=== PATIENT | female | born 1975 | race African-American/Black ===

== ENCOUNTER 2019-03-24 08:17 | Emergency (ER) | payer BC, OTHER ==
[2019-03-24 08:30] VITALS: BP 140/88; PULSE 89; TEMP 98.2; BMI 30.9
[2019-03-24] MEDS ORDERED: METHOCARBAMOL 750 MG TABLET PO ONE (09:11)
[2019-03-24] MEDS ORDERED: KETOROLAC TROMETHAMINE 60 MG/2 ML VIAL IM ONE (09:11)
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
[2019-03-24] MEDS ORDERED: KETOROLAC TROMETHAMINE 60 MG/2 ML VIAL ONE (09:36)
[2019-03-24] MEDS ORDERED: METHOCARBAMOL 500 MG TABLET ONE (09:37)
== END 2019-03-24 10:24 | disposition home or self-care (01) ==
LOC: JERFT 08:17
PROC: 3E0233Z Introduction of Anti-inflammatory into Muscle, Percutaneous Approach (ICD-10-PCS; principal; 2019-03-24)
DX: R25.2 Cramp and spasm (principal); E03.9 Hypothyroidism, unspecified; J45.909 Unspecified asthma, uncomplicated
CPT/HCPCS: 99281-25

== ENCOUNTER 2021-07-20 11:43 | Emergency (ER) | payer BC, OTHER ==
[2021-07-20 12:02] VITALS: BP 131/82; PULSE 98; TEMP 97.4; BMI 31.9
[2021-07-20] MEDS ORDERED: LIDOCAINE 5% TOPICAL PATCH TP ONE (12:19)
[2021-07-20] MEDS ORDERED: LIDOCAINE 5% TOPICAL PATCH ONE (12:54)
[2021-07-20 14:17] LABS: PH,URINE 6.5 (5.0-8.0); URINE APPEARANCE CLEAR; URINE BILIRUBIN NEGATIVE (NEGATIVE); URINE COLOR YELLOW; URINE GLUCOSE (UA) NEGATIVE (NEGATIVE); URINE KETONE NEGATIVE (NEGATIVE); URINE LEUK ESTERASE NEGATIVE (NEGATIVE); URINE NITRITE NEGATIVE (NEGATIVE); URINE PROTEIN TRACE (NEGATIVE); URINE UROBILINOGEN 0.2 mg/dL (0.2-1.0)
[2021-07-20] MEDS ORDERED: LIDOCAINE PATCH REMOVAL MC ONE (22:00)
== END 2021-07-20 14:15 | disposition home or self-care (01) ==
LOC: JERFT 11:43
DX: M54.6 Pain in thoracic spine (principal)
CPT/HCPCS: 71046-TC-FY; 72128-TC; 81003; 93005; 93010; 99285-25